=== PATIENT | female | born 1940 | race Caucasian/White ===

== ENCOUNTER 2020-08-28 08:23 | Inpatient (IN) | payer OTHER ==
[~2020-08-28] VITALS: Ht 160 cm; Wt 80.9 kg
[2020-08-28] MEDS ORDERED: IOPAMIDOL 370 MG/ML 200 ML INFUS..BTL INJ ONE (10:03)
[2020-08-28] MEDS ORDERED: SODIUM CHLORIDE 0.9% 50ML 50 ML ONE (10:03)
[2020-08-28] MEDS ORDERED: SODIUM CHLORIDE 0.9% 1000ML 1,000 ML IV SCH (10:45)
[2020-08-28] MEDS ORDERED: ASPIRIN 81 MG CHEW TAB PO ONE (12:00)
[2020-08-28] MEDS ORDERED: FAMOTIDINE 20 MG/2 ML VIAL IV ONE (12:38)
[2020-08-28] MEDS ORDERED: ONDANSETRON HCL INJ 2MG/ML 2ML 2 MG/ML VIAL ONE (12:38)
[2020-08-28] MEDS: FAMOTIDINE 20 MG/2 ML VIAL IV SCH ×2 (12:42→17:58)
[2020-08-28] MEDS: ONDANSETRON HCL INJ 2MG/ML 2ML 2 MG/ML VIAL IV PRN ×2 (12:42→20:07)
[2020-08-28] MEDS: D5.45%NS/KCL 20MEQ 1,000 ML IV SCH (13:30)
[2020-08-28 14:32] VITALS: BP 101/53
[2020-08-28 16:59] VITALS: BP 103/59
[2020-08-28] MEDS ORDERED: ASPIRIN81 MG PO (17:25)
[2020-08-28] MEDS ORDERED: BENICAR20 MG PO (17:25)
[2020-08-28] MEDS ORDERED: LASIX20 MG PO (17:25)
[2020-08-28] MEDS ORDERED: ATORVASTATIN CA10 MG PO (17:25)
[2020-08-28] MEDS ORDERED: BENADRYL ALLERG25 MG PO (17:25)
[2020-08-28] MEDS ORDERED: CYMBALTA20 MG PO (17:25)
[2020-08-28] MEDS ORDERED: DICLOFENAC35 MG PO (17:25)
[2020-08-28] MEDS ORDERED: ADVAIR 250-501 EACH INH (17:25)
[2020-08-28] MEDS ORDERED: CARVEDILOL3.125 MG PO (17:25)
[2020-08-28] MEDS ORDERED: FLONASE ALLERG9.9 ML INH (17:25)
[2020-08-28] MEDS ORDERED: METFORMIN HCL500 MG PO (17:25)
[2020-08-28] MEDS ORDERED: PROTONIX20 MG PO (17:25)
[2020-08-28] MEDS ORDERED: ZYRTEC10 M3 PO (17:25)
[2020-08-28 20:00] VITALS: BP 109/56
[2020-08-28 20:08] VITALS: BP 109/55
[2020-08-29] VITALS (10 sets, daily range): BP systolic 103–127; BP diastolic 51–69
[2020-08-29] MEDS: D5.45%NS/KCL 20MEQ 1,000 ML IV SCH ×3 (04:53→17:34)
[2020-08-29 08:22] LABS: BASOPHILS # (AUTO) 0.1 (0.0-0.1); BASOPHILS % 1.5 % (0.0-1.0); EOSINOPHILS % 0.4 % (0.0-6.0); HEMATOCRIT 37.2 % (34.2-44.1); HEMOGLOBIN 11.5 g/dL (12.0-16.0); LYMPHOCYTES # (AUTO) 0.8 (1.0-3.2); LYMPHOCYTES % 17.9 % (18.0-39.1); MEAN CORPUSCULAR HEMOGLOBIN 26.8 pg (28-32); MEAN CORPUSCULAR HGB CONC 30.9 g/dL (31-35); MEAN CORPUSCULAR VOLUME 86.7 fL (81-99); MONOCYTES # (AUTO) 1.1 (0.2-0.8); MONOCYTES % 23.9 % (4.4-11.3); NEUTROPHILS # (AUTO) 2.5 (2.1-6.9); NEUTROPHILS % 55.9 % (38.7-80.0); PLATELET COUNT 219 x10e3/uL (140-360); RED BLOOD COUNT 4.29 x10e6/uL (3.6-5.1); RED CELL DISTRIBUTION WIDTH 15.8 % (11.7-14.4)
[2020-08-29] MEDS: FAMOTIDINE 20 MG/2 ML VIAL IV SCH (08:27)
[2020-08-29 08:40] LABS: ANION GAP 13.9 mmol/L (8-16); BLOOD UREA NITROGEN 19 mg/dL (7-26); BUN/CREATININE RATIO 27 (6-25); CALCIUM 8.1 mg/dL (8.4-10.2); CARBON DIOXIDE 23 mmol/L (22-29); CHLORIDE 104 mmol/L (98-107); EST GLOMERULAR FILTRATION RATE > 60 ML/MIN (60-); GLUCOSE 142 mg/dL (74-118); POTASSIUM 3.9 mmol/L (3.5-5.1); SODIUM 137 mmol/L (136-145)
[2020-08-29 09:36] LABS: CREATINE KINASE MB 1.4 ng/mL (0-5.0)
[2020-08-29] MEDS ORDERED: ZOLPIDEM TARTRATE 5 MG TAB PO PRN (11:15)
[2020-08-29] MEDS ORDERED: DOCUSATE SODIUM 100 MG CAP PO PRN (11:15)
[2020-08-29] MEDS ORDERED: ONDANSETRON HCL INJ 2MG/ML 2ML 2 MG/ML VIAL IV PRN (11:15)
[2020-08-29 12:35] LABS: BAND NEUTROPHILS % (MANUAL) 10 %; EOSINOPHILS % (MANUAL) 1 % (0-7); LYMPHOCYTES % (MANUAL) 25 % (19-48); MONOCYTES % (MANUAL) 13 % (3.4-9.0); MYELOCYTES % (MANUAL) 1 % (0-0); NEUTROPHILS % (MANUAL) 44 % (40-74); PROMYELOCYTES % (MANUAL) 6 % (0-0)
[2020-08-29 12:38] LABS: PLATELET ESTIMATE ADEQUATE; PLATELET MORPHOLOGY COMMENT NORMAL; RBC MORPHOLOGY COMMENT NORMAL
[2020-08-29 13:52] LABS: INR 1.12; PROTHROMBIN TIME 15.1 seconds (11.9-14.5)
[2020-08-29 13:53] LABS: PARTIAL THROMBOPLASTIN TIME 34.6 seconds (23.8-35.5)
[2020-08-29 16:44] LABS: CHOL/HDL RATIO 2.9 (3.0-3.6)
[2020-08-29] MEDS: CARVEDILOL 3.125 MG TAB PO SCH (17:36)
[2020-08-29] MEDS: ATORVASTATIN 40 MG TAB PO SCH (22:44)
[2020-08-30] VITALS (13 sets, daily range): BP systolic 78–124; BP diastolic 52–72
[2020-08-30] MEDS: D5.45%NS/KCL 20MEQ 1,000 ML IV SCH ×2 (03:39→13:30)
[2020-08-30] MEDS ORDERED: SALMETEROL/FLUTICASONE 250/50 INH SCH (06:00)
[2020-08-30] MEDS: CARVEDILOL 3.125 MG TAB PO SCH ×2 (08:00→14:30)
[2020-08-30] MEDS: FAMOTIDINE 20 MG/2 ML VIAL IV SCH ×2 (08:50→16:06)
[2020-08-30] MEDS ORDERED: PANTOPRAZOLE SOD 40 MG TABEC PO SCH (09:00)
[2020-08-30] MEDS ORDERED: OLMESARTAN 20 MG TAB PO SCH (09:00)
[2020-08-30] MEDS ORDERED: MIDAZOLAM HCL 2 MG/2 ML VIAL ONE (13:01)
[2020-08-30] MEDS ORDERED: FENTANYL CITRATE/PF 100MCG/2 ML INJ ONE (13:01)
[2020-08-30] MEDS ORDERED: ETOMIDATE 2 MG/ML 10 ML INJ IV ONE (13:39)
[2020-08-30] MEDS ORDERED: SUCCINYLCHOLINE CHLORIDE 20 MG/ML 10ML VIAL ONE (13:39)
[2020-08-30] MEDS ORDERED: MIDAZOLAM HCL 2 MG/2 ML VIAL IV STA (14:13)
[2020-08-30] MEDS ORDERED: FENTANYL CITRATE/PF 100MCG/2 ML INJ IV ONE (14:15)
[2020-08-30] MEDS ORDERED: MIDAZOLAM HCL 5MG/ML 10ML VIAL 100 ML IV ONE (14:26)
[2020-08-30] MEDS: FENTANYL 2000MCG/NS 250 250 ML IV SCH ×2 (14:50→19:15)
[2020-08-30] MEDS: MIDAZOLAM HCL 5MG/ML 10ML VIAL 100 ML IV PRN (14:51)
[2020-08-30 15:34] LABS: ABG PCO2 45 mmHg (35-45); ABG PH 7.32 (7.35-7.45); ABG PO2 137 mmHg (80-105)
[2020-08-30 15:35] LABS: ABG HCO3 23 mmol/L (22-26); ABG TCO2 25
[2020-08-30] MEDS ORDERED: SODIUM CHLORIDE 0.9% 1000ML 1,000 ML IV ONE ×2 (15:45→16:15)
[2020-08-30] MEDS: NOREPINEPHRINE 8 MG/D5W 250 ML 250 ML IV PRN (16:06)
[2020-08-30] MEDS ORDERED: SODIUM CHLORIDE 0.9% 250ML 250 ML IV ONE (16:15)
[2020-08-30 16:23] LABS: BASOPHILS % 0.5 % (0.0-1.0); EOSINOPHILS # (AUTO) 0.1 (0.0-0.4); EOSINOPHILS % 0.7 % (0.0-6.0); HEMATOCRIT 32.4 % (34.2-44.1); LYMPHOCYTES # (AUTO) 1.4 (1.0-3.2); LYMPHOCYTES % 16.7 % (18.0-39.1); MEAN CORPUSCULAR HEMOGLOBIN 26.8 pg (28-32); MEAN CORPUSCULAR HGB CONC 30.9 g/dL (31-35); MEAN CORPUSCULAR VOLUME 86.9 fL (81-99); MONOCYTES # (AUTO) 1.3 (0.2-0.8); MONOCYTES % 15.2 % (4.4-11.3); NEUTROPHILS # (AUTO) 5.6 (2.1-6.9); PLATELET COUNT 290 x10e3/uL (140-360); RED BLOOD COUNT 3.73 x10e6/uL (3.6-5.1); RED CELL DISTRIBUTION WIDTH 15.6 % (11.7-14.4)
[2020-08-30] MEDS: PIPERACILLIN/TAZOBAC 3.375 GM in SODIUM CHLORIDE 0.9% 50ML 50 ML IV SCH (20:14)
[2020-08-30] MEDS: ATORVASTATIN 40 MG TAB PO SCH (21:47)
[2020-08-31] VITALS (20 sets, daily range): BP systolic 72–134; BP diastolic 47–68
[2020-08-31] MEDS: PIPERACILLIN/TAZOBAC 3.375 GM in SODIUM CHLORIDE 0.9% 50ML 50 ML IV SCH ×4 (00:20→18:51)
[2020-08-31 00:35] LABS: BASOPHILS % 0.5 % (0.0-1.0); EOSINOPHILS # (AUTO) 0.1 (0.0-0.4); HEMATOCRIT 30.4 % (34.2-44.1); HEMOGLOBIN 9.2 g/dL (12.0-16.0); LYMPHOCYTES # (AUTO) 1.3 (1.0-3.2); LYMPHOCYTES % 16.2 % (18.0-39.1); MEAN CORPUSCULAR HEMOGLOBIN 26.2 pg (28-32); MEAN CORPUSCULAR HGB CONC 30.3 g/dL (31-35); MEAN CORPUSCULAR VOLUME 86.6 fL (81-99); MONOCYTES # (AUTO) 1.1 (0.2-0.8); MONOCYTES % 13.4 % (4.4-11.3); NEUTROPHILS # (AUTO) 5.5 (2.1-6.9); NEUTROPHILS % 67.8 % (38.7-80.0); PLATELET COUNT 280 x10e3/uL (140-360); RED BLOOD COUNT 3.51 x10e6/uL (3.6-5.1); RED CELL DISTRIBUTION WIDTH 15.9 % (11.7-14.4)
[2020-08-31] MEDS: MIDAZOLAM HCL 5MG/ML 10ML VIAL 100 ML IV PRN ×3 (01:05→20:54)
[2020-08-31] MEDS ORDERED: PANTOPRAZOL 40MG/SOD CHL 0.9% 50 ML IV ONE (03:54)
[2020-08-31] MEDS: SODIUM CHLORIDE 0.9% 1000ML 1,000 ML IV SCH ×3 (06:48→22:13)
[2020-08-31] MEDS: PANTOPRAZOL 40MG/SOD CHL 0.9% 50 ML IV SCH ×4 (06:49→21:00)
[2020-08-31 07:31] LABS: ALANINE AMINOTRANSFERASE 8 IU/L (0-55); ALBUMIN 1.7 g/dL (3.5-5.0); ALBUMIN/GLOBULIN RATIO 0.9 (0.8-2.0); ALKALINE PHOSPHATASE 50 IU/L (40-150); ANION GAP 11.3 mmol/L (8-16); BLOOD UREA NITROGEN 15 mg/dL (7-26); BUN/CREATININE RATIO 23 (6-25); CARBON DIOXIDE 15 mmol/L (22-29); CHLORIDE 115 mmol/L (98-107); CREATININE, SERUM 0.64 mg/dL (0.57-1.11); EST GLOMERULAR FILTRATION RATE > 60 ML/MIN (60-); GLUCOSE 172 mg/dL (74-118); POTASSIUM 3.3 mmol/L (3.5-5.1); SODIUM 138 mmol/L (136-145)
[2020-08-31 07:54] LABS: BASOPHILS % 0.5 % (0.0-1.0); EOSINOPHILS # (AUTO) 0.1 (0.0-0.4); EOSINOPHILS % 0.9 % (0.0-6.0); HEMOGLOBIN 7.4 g/dL (12.0-16.0); LYMPHOCYTES # (AUTO) 1.2 (1.0-3.2); LYMPHOCYTES % 15.5 % (18.0-39.1); MEAN CORPUSCULAR HEMOGLOBIN 26.2 pg (28-32); MEAN CORPUSCULAR HGB CONC 29.6 g/dL (31-35); MEAN CORPUSCULAR VOLUME 88.7 fL (81-99); MONOCYTES % 12.2 % (4.4-11.3); NEUTROPHILS # (AUTO) 5.4 (2.1-6.9); NEUTROPHILS % 69.7 % (38.7-80.0); PLATELET COUNT 228 x10e3/uL (140-360); RED BLOOD COUNT 2.82 x10e6/uL (3.6-5.1)
[2020-08-31 07:57] LABS: CALCIUM 5.9 mg/dL (8.4-10.2)
[2020-08-31 08:02] LABS: ABG HCO3 21 mmol/L (22-26); ABG PCO2 49 mmHg (35-45); ABG PO2 211 mmHg (80-105); ABG TCO2 23
[2020-08-31 08:03] LABS: ABG PH 7.24 (7.35-7.45)
[2020-08-31 08:03] LABS: FERRITIN 91.63 ng/mL (4.63-204.00)
[2020-08-31 08:53] LABS: INR 1.31; PROTHROMBIN TIME 17.2 seconds (11.9-14.5)
[2020-08-31] MEDS: FAMOTIDINE 20 MG/2 ML VIAL IV SCH ×2 (08:56→18:51)
[2020-08-31] MEDS: NOREPINEPHRINE 8 MG/D5W 250 ML 250 ML IV PRN (08:58)
[2020-08-31] MEDS: FENTANYL 2000MCG/NS 250 250 ML IV SCH (09:01)
[2020-08-31] MEDS ORDERED: CALCIUM GLUCONATE 10% INJ 9.3 MEQ in SODIUM CHLORIDE 0.9% 100 ML 100 ML IV ONE (09:45)
[2020-08-31] MEDS ORDERED: CALCIUM GLUCONATE 10% INJ 0.465 MEQ/ML VIAL ONE (10:36)
[2020-08-31] MEDS ORDERED: HEPARIN SOD (PORCINE) 1000 UNIT/ML SDV ONE (11:23)
[2020-08-31] MEDS: ALBUTEROL/IPRATROPIUM 3 ML NEB NEB SCH ×2 (14:51→19:50)
[2020-08-31] MEDS ORDERED: PHYTONADIONE 10 MG/ML AMP SQ ONE (18:00)
[2020-08-31] MEDS ORDERED: SODIUM CHLORIDE 0.9% 250ML 250 ML ONE ×2 (18:21→21:55)
[2020-08-31] MEDS: ATORVASTATIN 40 MG TAB PO SCH (21:00)
[2020-09-01] VITALS (24 sets, daily range): BP systolic 113–144; BP diastolic 54–74
[2020-09-01] MEDS: PIPERACILLIN/TAZOBAC 3.375 GM in SODIUM CHLORIDE 0.9% 50ML 50 ML IV SCH ×4 (00:15→18:00)
[2020-09-01 00:27] LABS: ABG HCO3 19 mmol/L (22-26); ABG PCO2 39 mmHg (35-45); ABG PH 7.29 (7.35-7.45); ABG PO2 127 mmHg (80-105); ABG TCO2 20
[2020-09-01] MEDS: ALBUTEROL/IPRATROPIUM 3 ML NEB NEB SCH ×4 (01:50→16:43)
[2020-09-01] MEDS ORDERED: PHYTONADIONE 10MG/ML 2 ML ONE (01:54)
[2020-09-01] MEDS ORDERED: SODIUM CHLORIDE 0.9% 100 ML ONE (01:56)
[2020-09-01] MEDS ORDERED: PHYTONADIONE 10 MG/ML AMP SQ ONE (02:00)
[2020-09-01] MEDS: PANTOPRAZOL 40MG/SOD CHL 0.9% 50 ML IV SCH ×5 (02:35→23:04)
[2020-09-01] MEDS: SODIUM CHLORIDE 0.9% 1000ML 1,000 ML IV SCH (06:15)
[2020-09-01] MEDS: NOREPINEPHRINE 8 MG/D5W 250 ML 250 ML IV PRN (06:15)
[2020-09-01 06:34] LABS: BASOPHILS # (AUTO) 0.1 (0.0-0.1); BASOPHILS % 0.5 % (0.0-1.0); EOSINOPHILS # (AUTO) 0.1 (0.0-0.4); EOSINOPHILS % 1.1 % (0.0-6.0); HEMATOCRIT 33.6 % (34.2-44.1); HEMOGLOBIN 10.4 g/dL (12.0-16.0); LYMPHOCYTES % 9.9 % (18.0-39.1); MEAN CORPUSCULAR HEMOGLOBIN 27.2 pg (28-32); MONOCYTES # (AUTO) 1.1 (0.2-0.8); MONOCYTES % 10.9 % (4.4-11.3); NEUTROPHILS # (AUTO) 7.8 (2.1-6.9); NEUTROPHILS % 76.4 % (38.7-80.0); PLATELET COUNT 191 x10e3/uL (140-360); RED BLOOD COUNT 3.82 x10e6/uL (3.6-5.1); RED CELL DISTRIBUTION WIDTH 15.6 % (11.7-14.4)
[2020-09-01 06:45] LABS: INR 1.28; PROTHROMBIN TIME 16.9 seconds (11.9-14.5)
[2020-09-01 06:46] LABS: PARTIAL THROMBOPLASTIN TIME 31.5 seconds (23.8-35.5)
[2020-09-01] MEDS: FENTANYL 2000MCG/NS 250 250 ML IV SCH (06:54)
[2020-09-01] MEDS: MIDAZOLAM HCL 5MG/ML 10ML VIAL 100 ML IV PRN (06:55)
[2020-09-01 07:08] LABS: ALANINE AMINOTRANSFERASE 8 IU/L (0-55); ALBUMIN 1.8 g/dL (3.5-5.0); ALBUMIN/GLOBULIN RATIO 0.7 (0.8-2.0); ALKALINE PHOSPHATASE 57 IU/L (40-150); ANION GAP 13.7 mmol/L (8-16); BLOOD UREA NITROGEN 15 mg/dL (7-26); BUN/CREATININE RATIO 24 (6-25); CALCIUM 7.2 mg/dL (8.4-10.2); CARBON DIOXIDE 17 mmol/L (22-29); CHLORIDE 115 mmol/L (98-107); CREATININE, SERUM 0.63 mg/dL (0.57-1.11); EST GLOMERULAR FILTRATION RATE > 60 ML/MIN (60-); GLUCOSE 107 mg/dL (74-118); POTASSIUM 3.7 mmol/L (3.5-5.1); SODIUM 142 mmol/L (136-145)
[2020-09-01] MEDS: IRON SUCROSE 100 MG in SODIUM CHLORIDE 0.9% 100 ML 100 ML IV SCH (09:00)
[2020-09-01] MEDS ORDERED: METHYLPREDNISOLONE SOD SUCC 125 MG/2ML VIAL IV SCH ×2 (09:00→21:00)
[2020-09-01] MEDS ORDERED: METHYLPREDNISOLONE SOD SUCC 125 MG/2ML VIAL ONE (09:52)
[2020-09-01] MEDS ORDERED: PROPOFOL IV EMULSION 10MG/ML 100 ML IV PRN (11:30)
[2020-09-01] MEDS ORDERED: FUROSEMIDE INJ 10 MG/ML 10 ML VIAL ONE (11:34)
[2020-09-01] MEDS ORDERED: ALBUMIN 25% 25GM 100ML 100 ML ONE (11:38)
[2020-09-01] MEDS: FUROSEMIDE INJ 10 MG/ML 4 ML VIAL IV SCH ×2 (11:45→20:55)
[2020-09-01] MEDS ORDERED: ALBUMIN 25% 25GM 100ML 0.25 GM/ML BTL IV SCH (12:00)
[2020-09-01] MEDS: ALBUMIN 25% 25GM 100ML 100 ML IV SCH ×2 (12:30→22:13)
[2020-09-01] MEDS ORDERED: ACETAMINOPHEN 325 MG TAB PO ONE (17:45)
[2020-09-01] MEDS: ATORVASTATIN 40 MG TAB PO SCH (20:55)
[2020-09-01] MEDS: METHYLPREDNISOLONE SOD SUCC 40 MG/ML VIAL 1ML IV SCH (20:55)
[2020-09-02] VITALS (26 sets, daily range): BP systolic 127–177; BP diastolic 58–86
[2020-09-02] MEDS: PIPERACILLIN/TAZOBAC 3.375 GM in SODIUM CHLORIDE 0.9% 50ML 50 ML IV SCH ×4 (00:01→17:31)
[2020-09-02] MEDS: ALBUTEROL/IPRATROPIUM 3 ML NEB NEB SCH ×4 (02:45→20:10)
[2020-09-02] MEDS: PANTOPRAZOL 40MG/SOD CHL 0.9% 50 ML IV SCH ×5 (03:35→23:49)
[2020-09-02 04:52] LABS: BASOPHILS % 0.3 % (0.0-1.0); HEMATOCRIT 29.3 % (34.2-44.1); HEMOGLOBIN 9.2 g/dL (12.0-16.0); LYMPHOCYTES # (AUTO) 0.4 (1.0-3.2); LYMPHOCYTES % 4.7 % (18.0-39.1); MEAN CORPUSCULAR HEMOGLOBIN 27.2 pg (28-32); MEAN CORPUSCULAR HGB CONC 31.4 g/dL (31-35); MEAN CORPUSCULAR VOLUME 86.7 fL (81-99); MONOCYTES # (AUTO) 0.2 (0.2-0.8); MONOCYTES % 2.5 % (4.4-11.3); NEUTROPHILS # (AUTO) 6.8 (2.1-6.9); NEUTROPHILS % 90.9 % (38.7-80.0); PLATELET COUNT 162 x10e3/uL (140-360); RED BLOOD COUNT 3.38 x10e6/uL (3.6-5.1)
[2020-09-02 05:15] LABS: AMYLASE 17 U/L (25-125); LIPASE 4 U/L (8-78)
[2020-09-02 05:19] LABS: ALANINE AMINOTRANSFERASE 7 IU/L (0-55); ALBUMIN 2.6 g/dL (3.5-5.0); ALKALINE PHOSPHATASE 50 IU/L (40-150); ANION GAP 14.8 mmol/L (8-16); BLOOD UREA NITROGEN 14 mg/dL (7-26); BUN/CREATININE RATIO 20 (6-25); CALCIUM 7.8 mg/dL (8.4-10.2); CARBON DIOXIDE 23 mmol/L (22-29); CHLORIDE 110 mmol/L (98-107); CREATININE, SERUM 0.71 mg/dL (0.57-1.11); EST GLOMERULAR FILTRATION RATE > 60 ML/MIN (60-); GLUCOSE 151 mg/dL (74-118); SODIUM 145 mmol/L (136-145)
[2020-09-02 05:53] LABS: POTASSIUM 2.8 mmol/L (3.5-5.1)
[2020-09-02] MEDS ORDERED: POTASSIUM CHLORIDE 20MEQ/100ML 200 ML IV ONE ×2 (06:00→18:00)
[2020-09-02] MEDS: ALBUMIN 25% 25GM 100ML 100 ML IV SCH (06:05)
[2020-09-02] MEDS ORDERED: POTASSIUM CHLORIDE 20MEQ/100ML 200 ML ONE (06:05)
[2020-09-02] MEDS: METHYLPREDNISOLONE SOD SUCC 40 MG/ML VIAL 1ML IV SCH ×2 (08:46→19:55)
[2020-09-02] MEDS: IRON SUCROSE 100 MG in SODIUM CHLORIDE 0.9% 100 ML 100 ML IV SCH (08:46)
[2020-09-02 10:55] LABS: ABG HCO3 26 mmol/L (22-26); ABG PCO2 46 mmHg (35-45); ABG PH 7.35 (7.35-7.45); ABG PO2 62 mmHg (80-105); ABG TCO2 27
[2020-09-02] MEDS ORDERED: POTASSIUM CHLORIDE 20MEQ/15ML UDC NG ONE (15:15)
[2020-09-02] MEDS ORDERED: KCL 20 MEQ PACKET/ ORAL SOLN NG ONE (15:45)
[2020-09-02] MEDS ORDERED: HALOPERIDOL LACTATE 5 MG/ML VIAL IV ONE (16:30)
[2020-09-02] MEDS ORDERED: HALOPERIDOL LACTATE 5 MG/ML VIAL ONE (16:30)
[2020-09-02] MEDS: NICOTINE 21 MG/EA PATCH TOP PRN (19:14)
[2020-09-02] MEDS: ATORVASTATIN 40 MG TAB PO SCH (19:38)
[2020-09-02] MEDS ORDERED: QUETIAPINE FUMARATE 25 MG TAB ONE (21:45)
[2020-09-02] MEDS ORDERED: QUETIAPINE FUMARATE 25 MG TAB PO SCH (22:00)
[2020-09-02] MEDS ORDERED: PANTOPRAZOLE 40 MG 10ML VIAL ONE (23:53)
[2020-09-02] MEDS ORDERED: SODIUM CHLORIDE 0.9% 100 ML ONE (23:53)
[2020-09-03] VITALS (24 sets, daily range): BP systolic 103–205; BP diastolic 60–116
[2020-09-03] MEDS: PIPERACILLIN/TAZOBAC 3.375 GM in SODIUM CHLORIDE 0.9% 50ML 50 ML IV SCH ×4 (00:37→17:37)
[2020-09-03] MEDS: ALBUTEROL/IPRATROPIUM 3 ML NEB NEB SCH ×4 (01:00→20:35)
[2020-09-03 04:52] LABS: BASOPHILS % 0.1 % (0.0-1.0); HEMATOCRIT 31.4 % (34.2-44.1); HEMOGLOBIN 9.9 g/dL (12.0-16.0); LYMPHOCYTES # (AUTO) 0.5 (1.0-3.2); LYMPHOCYTES % 3.5 % (18.0-39.1); MEAN CORPUSCULAR HGB CONC 31.5 g/dL (31-35); MEAN CORPUSCULAR VOLUME 85.6 fL (81-99); MONOCYTES % 7.5 % (4.4-11.3); NEUTROPHILS # (AUTO) 12.2 (2.1-6.9); NEUTROPHILS % 87.6 % (38.7-80.0); PLATELET COUNT 221 x10e3/uL (140-360); RED BLOOD COUNT 3.67 x10e6/uL (3.6-5.1); RED CELL DISTRIBUTION WIDTH 15.3 % (11.7-14.4)
[2020-09-03 05:22] LABS: ALANINE AMINOTRANSFERASE 14 IU/L (0-55); ALBUMIN 3.3 g/dL (3.5-5.0); ALBUMIN/GLOBULIN RATIO 1.1 (0.8-2.0); ALKALINE PHOSPHATASE 64 IU/L (40-150); ANION GAP 17.9 mmol/L (8-16); BLOOD UREA NITROGEN 22 mg/dL (7-26); BUN/CREATININE RATIO 29 (6-25); CALCIUM 9.1 mg/dL (8.4-10.2); CARBON DIOXIDE 23 mmol/L (22-29); CHLORIDE 113 mmol/L (98-107); CREATININE, SERUM 0.77 mg/dL (0.57-1.11); EST GLOMERULAR FILTRATION RATE > 60 ML/MIN (60-); GLUCOSE 136 mg/dL (74-118); POTASSIUM 3.9 mmol/L (3.5-5.1); SODIUM 150 mmol/L (136-145)
[2020-09-03] MEDS: PANTOPRAZOL 40MG/SOD CHL 0.9% 50 ML IV SCH ×4 (05:37→19:45)
[2020-09-03] MEDS ORDERED: QUETIAPINE FUMARATE 25 MG TAB PO PRN (06:15)
[2020-09-03] MEDS: DEXTROSE 5% 1,000 ML IV SCH (06:19)
[2020-09-03] MEDS: CHLORDIAZEPOXIDE HCL 25 MG CAP NG SCH ×2 (06:19→11:00)
[2020-09-03] MEDS ORDERED: CHLORDIAZEPOXIDE HCL 25 MG CAP ONE (06:28)
[2020-09-03] MEDS ORDERED: LORAZEPAM INJ 2 MG/ML VIAL ONE (07:16)
[2020-09-03] MEDS ORDERED: LORAZEPAM INJ 2 MG/ML VIAL IV ONE (08:25)
[2020-09-03] MEDS ORDERED: QUETIAPINE FUMARATE 25 MG TAB PO SCH (09:00)
[2020-09-03] MEDS: IRON SUCROSE 100 MG in SODIUM CHLORIDE 0.9% 100 ML 100 ML IV SCH (09:00)
[2020-09-03] MEDS: METHYLPREDNISOLONE SOD SUCC 40 MG/ML VIAL 1ML IV SCH (09:00)
[2020-09-03] MEDS: NICOTINE 21 MG/EA PATCH TOP PRN (09:00)
[2020-09-03] MEDS ORDERED: ZIPRASIDONE 20 MG VIAL IM ONE (09:49)
[2020-09-03] MEDS ORDERED: ZIPRASIDONE 20 MG VIAL IM STA (10:51)
[2020-09-03] MEDS ORDERED: ZIPRASIDONE 20 MG VIAL IM PRN (11:00)
[2020-09-03] MEDS ORDERED: ACETAMINOPHEN 650 MG SUPP PR ONE ×2 (12:26→12:45)
[2020-09-03] MEDS ORDERED: ACETAMINOPHEN 650 MG SUPP PR PRN (12:45)
[2020-09-03] MEDS: QUETIAPINE FUMARATE 25 MG TAB PO SCH ×2 (16:00→21:10)
[2020-09-03] MEDS: LORAZEPAM INJ 2 MG/ML VIAL IV PRN ×2 (22:01→22:11)
[2020-09-04] VITALS (26 sets, daily range): BP systolic 96–173; BP diastolic 60–113
[2020-09-04] MEDS: PIPERACILLIN/TAZOBAC 3.375 GM in SODIUM CHLORIDE 0.9% 50ML 50 ML IV SCH ×3 (00:16→12:40)
[2020-09-04] MEDS: ALBUTEROL/IPRATROPIUM 3 ML NEB NEB SCH ×4 (00:25→21:45)
[2020-09-04] MEDS: PANTOPRAZOL 40MG/SOD CHL 0.9% 50 ML IV SCH ×4 (01:19→16:15)
[2020-09-04] MEDS: QUETIAPINE FUMARATE 25 MG TAB PO SCH ×4 (04:00→22:00)
[2020-09-04] MEDS: LORAZEPAM INJ 2 MG/ML VIAL IV PRN ×2 (04:48→11:52)
[2020-09-04 04:50] LABS: BASOPHILS % 0.2 % (0.0-1.0); HEMATOCRIT 32.2 % (34.2-44.1); HEMOGLOBIN 9.9 g/dL (12.0-16.0); LYMPHOCYTES # (AUTO) 0.7 (1.0-3.2); LYMPHOCYTES % 6.7 % (18.0-39.1); MEAN CORPUSCULAR HEMOGLOBIN 26.7 pg (28-32); MEAN CORPUSCULAR HGB CONC 30.7 g/dL (31-35); MEAN CORPUSCULAR VOLUME 86.8 fL (81-99); MONOCYTES # (AUTO) 0.7 (0.2-0.8); NEUTROPHILS # (AUTO) 9.4 (2.1-6.9); NEUTROPHILS % 85.8 % (38.7-80.0); PLATELET COUNT 172 x10e3/uL (140-360); RED BLOOD COUNT 3.71 x10e6/uL (3.6-5.1); RED CELL DISTRIBUTION WIDTH 15.4 % (11.7-14.4)
[2020-09-04] MEDS ORDERED: THIAMINE HCL INJ 100 MG/ML 2ML VIAL ONE (05:13)
[2020-09-04 05:14] LABS: ALANINE AMINOTRANSFERASE 23 IU/L (0-55); ALBUMIN 3.2 g/dL (3.5-5.0); ALBUMIN/GLOBULIN RATIO 1.1 (0.8-2.0); ALKALINE PHOSPHATASE 62 IU/L (40-150); ANION GAP 16.2 mmol/L (8-16); BLOOD UREA NITROGEN 17 mg/dL (7-26); BUN/CREATININE RATIO 26 (6-25); CALCIUM 8.8 mg/dL (8.4-10.2); CARBON DIOXIDE 27 mmol/L (22-29); CHLORIDE 109 mmol/L (98-107); CREATININE, SERUM 0.65 mg/dL (0.57-1.11); EST GLOMERULAR FILTRATION RATE > 60 ML/MIN (60-); GLUCOSE 126 mg/dL (74-118); POTASSIUM 3.2 mmol/L (3.5-5.1); SODIUM 149 mmol/L (136-145)
[2020-09-04] MEDS ORDERED: THIAMINE HCL INJ 100 MG/ML 2ML VIAL IV ONE (06:00)
[2020-09-04] MEDS: DEXTROSE 5% 1,000 ML IV SCH (06:15)
[2020-09-04] MEDS ORDERED: POTASSIUM CHLORIDE 20 MEQ TAB CR PO STA (07:51)
[2020-09-04] MEDS ORDERED: METOPROLOL TARTRATE INJ 1 MG/ML VIAL IV PRN (08:15)
[2020-09-04] MEDS ORDERED: METOPROLOL TARTRATE INJ 1 MG/ML VIAL IV ONE (08:15)
[2020-09-04] MEDS ORDERED: EPINEPHRINE 2.25% INH NEBU SOL 0.5 ML VIAL ONE (08:19)
[2020-09-04] MEDS ORDERED: METHYLPREDNISOLONE SOD SUCC 40 MG/ML VIAL 1ML IV SCH (08:30)
[2020-09-04] MEDS ORDERED: THIAMINE HCL INJ 100 MG/ML 2ML VIAL IV SCH (09:00)
[2020-09-04] MEDS ORDERED: FUROSEMIDE INJ 10 MG/ML 4 ML VIAL IV STA (09:15)
[2020-09-04] MEDS: IRON SUCROSE 100 MG in SODIUM CHLORIDE 0.9% 100 ML 100 ML IV SCH (09:41)
[2020-09-04] MEDS: NICOTINE 21 MG/EA PATCH TOP PRN (14:00)
[2020-09-04] MEDS ORDERED: ZIPRASIDONE 20 MG VIAL IM STA (18:03)
[2020-09-04] MEDS ORDERED: ASPIRIN 81 MG CHEW TAB PO ONE ×3 (20:30→20:45)
[2020-09-04] MEDS ORDERED: POTASSIUM CHLORIDE 20MEQ/100ML 100 ML IV ONE ×2 (20:45→23:00)
[2020-09-04] MEDS: METHYLPREDNISOLONE SOD SUCC 40 MG/ML VIAL 1ML IV SCH (21:40)
[2020-09-04] MEDS: FUROSEMIDE INJ 10 MG/ML 4 ML VIAL IV SCH (21:40)
[2020-09-04 21:58] LABS: CREATINE KINASE MB 3.1 ng/mL (0-5.0)
[2020-09-05] VITALS (26 sets, daily range): BP systolic 99–166; BP diastolic 63–131
[2020-09-05] MEDS: ALBUTEROL/IPRATROPIUM 3 ML NEB NEB SCH ×4 (02:30→19:15)
[2020-09-05] MEDS: QUETIAPINE FUMARATE 25 MG TAB PO SCH ×4 (04:00→22:00)
[2020-09-05 04:03] LABS: CREATINE KINASE MB 2.6 ng/mL (0-5.0)
[2020-09-05] MEDS: FUROSEMIDE INJ 10 MG/ML 4 ML VIAL IV SCH (06:34)
[2020-09-05 07:13] LABS: ANION GAP 19.4 mmol/L (8-16); BLOOD UREA NITROGEN 15 mg/dL (7-26); BUN/CREATININE RATIO 22 (6-25); CALCIUM 8.8 mg/dL (8.4-10.2); CARBON DIOXIDE 31 mmol/L (22-29); CHLORIDE 101 mmol/L (98-107); CREATININE, SERUM 0.67 mg/dL (0.57-1.11); EST GLOMERULAR FILTRATION RATE > 60 ML/MIN (60-); GLUCOSE 146 mg/dL (74-118); POTASSIUM 3.4 mmol/L (3.5-5.1); SODIUM 148 mmol/L (136-145)
[2020-09-05] MEDS: IRON SUCROSE 100 MG in SODIUM CHLORIDE 0.9% 100 ML 100 ML IV SCH ×3 (09:00→17:45)
[2020-09-05] MEDS: HYDROCHLOROTHIAZIDE 25 MG TAB PO SCH (09:30)
[2020-09-05] MEDS ORDERED: POTASSIUM CHLORIDE 10MEQ/100ML 300 ML IV ONE (10:30)
[2020-09-05] MEDS ORDERED: AMIODARONE HCL 150 MG/100 ML BAG IV NR (10:30)
[2020-09-05 10:38] LABS: CREATINE KINASE MB 2.9 ng/mL (0-5.0)
[2020-09-05] MEDS: PANTOPRAZOLE 40 MG 10ML VIAL IV SCH ×2 (10:45→17:00)
[2020-09-05] MEDS ORDERED: AMIODARONE HCL 900 MG in DEXTROSE 5% 500ML 500 ML IV ONE (10:45)
[2020-09-05] MEDS: METHYLPREDNISOLONE SOD SUCC 40 MG/ML VIAL 1ML IV SCH (10:45)
[2020-09-05] MEDS ORDERED: MAGNESIUM SULFATE 2GM/50ML 50 ML IV ONE (10:45)
[2020-09-05] MEDS: THIAMINE HCL INJ 100 MG/ML 2ML VIAL IV SCH (10:53)
[2020-09-05] MEDS ORDERED: ALBUTEROL SULF 0.083% NEB SOLN 3 ML NEB ONE (12:48)
[2020-09-06] VITALS (16 sets, daily range): BP systolic 93–165; BP diastolic 55–100
[2020-09-06] MEDS: ALBUTEROL/IPRATROPIUM 3 ML NEB NEB SCH ×4 (00:30→19:00)
[2020-09-06] MEDS: LORAZEPAM INJ 2 MG/ML VIAL IV PRN ×2 (02:33→09:33)
[2020-09-06] MEDS: QUETIAPINE FUMARATE 25 MG TAB PO SCH ×4 (03:48→23:08)
[2020-09-06 04:53] LABS: BASOPHILS % 0.2 % (0.0-1.0); HEMATOCRIT 35.3 % (34.2-44.1); HEMOGLOBIN 10.8 g/dL (12.0-16.0); LYMPHOCYTES # (AUTO) 0.7 (1.0-3.2); LYMPHOCYTES % 5.9 % (18.0-39.1); MEAN CORPUSCULAR HGB CONC 30.6 g/dL (31-35); MEAN CORPUSCULAR VOLUME 88.3 fL (81-99); MONOCYTES # (AUTO) 0.5 (0.2-0.8); MONOCYTES % 4.3 % (4.4-11.3); NEUTROPHILS # (AUTO) 10.3 (2.1-6.9); NEUTROPHILS % 88.7 % (38.7-80.0); PLATELET COUNT 217 x10e3/uL (140-360); RED CELL DISTRIBUTION WIDTH 15.5 % (11.7-14.4)
[2020-09-06 05:10] LABS: ALANINE AMINOTRANSFERASE 28 IU/L (0-55); ALBUMIN 3.3 g/dL (3.5-5.0); ALBUMIN/GLOBULIN RATIO 1.1 (0.8-2.0); ALKALINE PHOSPHATASE 61 IU/L (40-150); BLOOD UREA NITROGEN 20 mg/dL (7-26); BUN/CREATININE RATIO 32 (6-25); CALCIUM 8.7 mg/dL (8.4-10.2); CARBON DIOXIDE 35 mmol/L (22-29); CHLORIDE 99 mmol/L (98-107); CREATININE, SERUM 0.62 mg/dL (0.57-1.11); EST GLOMERULAR FILTRATION RATE > 60 ML/MIN (60-); GLUCOSE 128 mg/dL (74-118); SODIUM 146 mmol/L (136-145)
[2020-09-06] MEDS ORDERED: POTASSIUM CHLORIDE 20MEQ/100ML 200 ML IV ONE (08:30)
[2020-09-06] MEDS ORDERED: SODIUM CHLORIDE 0.9% 500ML 500 ML ONE (09:23)
[2020-09-06] MEDS: HYDROCHLOROTHIAZIDE 25 MG TAB PO SCH (09:32)
[2020-09-06] MEDS: FUROSEMIDE INJ 10 MG/ML 4 ML VIAL IV SCH (09:32)
[2020-09-06] MEDS: THIAMINE HCL INJ 100 MG/ML 2ML VIAL IV SCH (09:32)
[2020-09-06] MEDS: PANTOPRAZOLE 40 MG 10ML VIAL IV SCH ×2 (09:32→16:43)
[2020-09-06] MEDS: NICOTINE 21 MG/EA PATCH TOP PRN (09:33)
[2020-09-06] MEDS ORDERED: AMIODARONE HCL 900 MG in DEXTROSE 5% 500ML 500 ML IV SCH (14:00)
[2020-09-06] MEDS ORDERED: PROPOFOL IV EMULSION 10MG/ML 100 ML ONE (14:22)
[2020-09-06] MEDS ORDERED: AMIODARONE 900MG 500 ML IV SCH ×2 (14:30→20:31)
[2020-09-06] MEDS: IRON SUCROSE 100 MG in SODIUM CHLORIDE 0.9% 100 ML 100 ML IV SCH (16:43)
[2020-09-06] MEDS ORDERED: ASPIRIN 325 MG TAB PO ONE (20:00)
[2020-09-06] MEDS: ATORVASTATIN 20 MG TAB PO SCH (21:19)
[2020-09-07] VITALS (24 sets, daily range): BP systolic 71–133; BP diastolic 37–112
[2020-09-07] MEDS: ALBUTEROL/IPRATROPIUM 3 ML NEB NEB SCH ×4 (01:00→19:10)
[2020-09-07] MEDS: QUETIAPINE FUMARATE 25 MG TAB PO SCH ×2 (04:00→08:53)
[2020-09-07] MEDS ORDERED: FENTANYL CITRATE/PF 100MCG/2 ML INJ ONE (07:17)
[2020-09-07] MEDS ORDERED: HEPARIN SOD (PORCINE) 1000 UNIT/ML 30ML ONE (07:17)
[2020-09-07] MEDS ORDERED: HEPARIN SOD/SOD CHLORIDE 2,000 ML ONE (07:17)
[2020-09-07] MEDS ORDERED: LIDOCAINE HCL 2% LOCAL 20 ML VIAL ONE (07:17)
[2020-09-07] MEDS ORDERED: MIDAZOLAM HCL 2 MG/2 ML VIAL ONE (07:17)
[2020-09-07] MEDS ORDERED: SODIUM CHLORIDE 0.9% 1000ML 1,000 ML ONE ×2 (07:18→10:33)
[2020-09-07] MEDS ORDERED: IOPAMIDOL 370 MG/ML 200 ML INFUS..BTL INJ ONE (07:18)
[2020-09-07] MEDS ORDERED: NITROGLYCERIN/D5W 200 MCG/ML 0 ML ONE (07:18)
[2020-09-07] MEDS: THIAMINE HCL INJ 100 MG/ML 2ML VIAL IV SCH (08:52)
[2020-09-07] MEDS: FUROSEMIDE INJ 10 MG/ML 4 ML VIAL IV SCH (08:52)
[2020-09-07] MEDS: PANTOPRAZOLE 40 MG 10ML VIAL IV SCH ×2 (08:52→16:48)
[2020-09-07] MEDS: ASPIRIN 81 MG CHEW TAB PO SCH (08:52)
[2020-09-07] MEDS: METOPROLOL TARTRATE 25 MG TAB PO SCH ×2 (08:53→09:00)
[2020-09-07] MEDS: HYDROCHLOROTHIAZIDE 25 MG TAB PO SCH ×2 (08:53→09:00)
[2020-09-07 10:04] LABS: BASOPHILS % 0.2 % (0.0-1.0); EOSINOPHILS # (AUTO) 0.1 (0.0-0.4); EOSINOPHILS % 0.4 % (0.0-6.0); HEMATOCRIT 38.6 % (34.2-44.1); HEMOGLOBIN 11.8 g/dL (12.0-16.0); LYMPHOCYTES # (AUTO) 0.7 (1.0-3.2); LYMPHOCYTES % 4.6 % (18.0-39.1); MEAN CORPUSCULAR HEMOGLOBIN 27.1 pg (28-32); MEAN CORPUSCULAR HGB CONC 30.6 g/dL (31-35); MEAN CORPUSCULAR VOLUME 88.5 fL (81-99); MONOCYTES # (AUTO) 0.7 (0.2-0.8); MONOCYTES % 4.1 % (4.4-11.3); NEUTROPHILS # (AUTO) 14.3 (2.1-6.9); NEUTROPHILS % 89.7 % (38.7-80.0); PLATELET COUNT 233 x10e3/uL (140-360); RED BLOOD COUNT 4.36 x10e6/uL (3.6-5.1)
[2020-09-07 10:24] LABS: ALANINE AMINOTRANSFERASE 19 IU/L (0-55); ALBUMIN 2.9 g/dL (3.5-5.0); ALBUMIN/GLOBULIN RATIO 1.2 (0.8-2.0); ALKALINE PHOSPHATASE 56 IU/L (40-150); ANION GAP 13.3 mmol/L (8-16); BLOOD UREA NITROGEN 19 mg/dL (7-26); BUN/CREATININE RATIO 29 (6-25); CALCIUM 7.9 mg/dL (8.4-10.2); CARBON DIOXIDE 32 mmol/L (22-29); CHLORIDE 96 mmol/L (98-107); CREATININE, SERUM 0.65 mg/dL (0.57-1.11); EST GLOMERULAR FILTRATION RATE > 60 ML/MIN (60-); GLUCOSE 136 mg/dL (74-118); POTASSIUM 3.3 mmol/L (3.5-5.1); SODIUM 138 mmol/L (136-145)
[2020-09-07] MEDS ORDERED: VASOPRESSIN 60 UNIT in DEXTROSE 5% 50ML 57 ML IV SCH (11:00)
[2020-09-07] MEDS ORDERED: SODIUM CHLORIDE 0.9% 250ML 250 ML IV ONE (11:15)
[2020-09-07] MEDS ORDERED: POTASSIUM CHLORIDE 10MEQ EA PO ONE (12:00)
[2020-09-07] MEDS: IRON SUCROSE 100 MG in SODIUM CHLORIDE 0.9% 100 ML 100 ML IV SCH (16:48)
[2020-09-07] MEDS: ACETAMINOPHEN 325 MG TAB PO PRN (19:55)
[2020-09-07] MEDS: ATORVASTATIN 20 MG TAB PO SCH (21:08)
[2020-09-08] VITALS (13 sets, daily range): BP systolic 94–148; BP diastolic 47–78
[2020-09-08] MEDS: ALBUTEROL/IPRATROPIUM 3 ML NEB NEB SCH ×4 (01:00→21:05)
[2020-09-08] MEDS: PANTOPRAZOLE 40 MG 10ML VIAL IV SCH ×2 (08:18→17:00)
[2020-09-08] MEDS: THIAMINE HCL INJ 100 MG/ML 2ML VIAL IV SCH (08:18)
[2020-09-08] MEDS: FUROSEMIDE INJ 10 MG/ML 4 ML VIAL IV SCH (08:18)
[2020-09-08] MEDS: ASPIRIN 81 MG CHEW TAB PO SCH (08:18)
[2020-09-08] MEDS: HYDROCHLOROTHIAZIDE 25 MG TAB PO SCH (08:18)
[2020-09-08] MEDS: BALSAM PERU/CASTOR OIL 60 GM OINT...G. TP SCH (08:19)
[2020-09-08 08:20] LABS: ANION GAP 13.4 mmol/L (8-16); BLOOD UREA NITROGEN 17 mg/dL (7-26); BUN/CREATININE RATIO 26 (6-25); CALCIUM 7.9 mg/dL (8.4-10.2); CARBON DIOXIDE 33 mmol/L (22-29); CHLORIDE 93 mmol/L (98-107); CREATININE, SERUM 0.65 mg/dL (0.57-1.11); EST GLOMERULAR FILTRATION RATE > 60 ML/MIN (60-); GLUCOSE 98 mg/dL (74-118); POTASSIUM 3.4 mmol/L (3.5-5.1); SODIUM 136 mmol/L (136-145)
[2020-09-08] MEDS ORDERED: POTASSIUM CHLORIDE 20 MEQ TAB CR PO ONE (11:15)
[2020-09-08] MEDS: ACETAMINOPHEN 325 MG TAB PO PRN (12:27)
[2020-09-08] MEDS: IRON SUCROSE 100 MG in SODIUM CHLORIDE 0.9% 100 ML 100 ML IV SCH (17:19)
[2020-09-08] MEDS: ATORVASTATIN 20 MG TAB PO SCH (20:42)
[2020-09-09] VITALS (8 sets, daily range): BP systolic 95–148; BP diastolic 40–83
[2020-09-09] MEDS: ACETAMINOPHEN 325 MG TAB PO PRN (00:57)
[2020-09-09] MEDS: ALBUTEROL/IPRATROPIUM 3 ML NEB NEB SCH ×4 (03:30→20:00)
[2020-09-09 06:58] LABS: BASOPHILS % 0.2 % (0.0-1.0); EOSINOPHILS % 0.2 % (0.0-6.0); HEMATOCRIT 32.7 % (34.2-44.1); HEMOGLOBIN 10.3 g/dL (12.0-16.0); LYMPHOCYTES # (AUTO) 0.5 (1.0-3.2); LYMPHOCYTES % 2.9 % (18.0-39.1); MEAN CORPUSCULAR HGB CONC 31.5 g/dL (31-35); MEAN CORPUSCULAR VOLUME 85.8 fL (81-99); MONOCYTES # (AUTO) 0.9 (0.2-0.8); MONOCYTES % 5.2 % (4.4-11.3); NEUTROPHILS % 90.6 % (38.7-80.0); PLATELET COUNT 200 x10e3/uL (140-360); RED BLOOD COUNT 3.81 x10e6/uL (3.6-5.1); RED CELL DISTRIBUTION WIDTH 16.2 % (11.7-14.4)
[2020-09-09 07:28] LABS: ANISOCYTOSIS SLIGHT; LYMPHOCYTES % (MANUAL) 1 % (19-48); MONOCYTES % (MANUAL) 5 % (3.4-9.0); NEUTROPHILS % (MANUAL) 94 % (40-74); PLATELET ESTIMATE ADEQUATE; PLATELET MORPHOLOGY COMMENT NORMAL
[2020-09-09 07:29] LABS: RBC MORPHOLOGY COMMENT NORMAL
[2020-09-09] MEDS: PANTOPRAZOLE 40 MG 10ML VIAL IV SCH (09:00)
[2020-09-09] MEDS: FUROSEMIDE INJ 10 MG/ML 4 ML VIAL IV SCH (09:00)
[2020-09-09] MEDS: BALSAM PERU/CASTOR OIL 60 GM OINT...G. TP SCH (09:00)
[2020-09-09] MEDS: ASPIRIN 81 MG CHEW TAB PO SCH (09:00)
[2020-09-09] MEDS: HYDROCHLOROTHIAZIDE 25 MG TAB PO SCH (09:00)
[2020-09-09] MEDS: THIAMINE HCL INJ 100 MG/ML 2ML VIAL IV SCH (09:00)
[2020-09-09] MEDS ORDERED: POTASSIUM CHLORIDE 20 MEQ TAB CR PO ONE (10:30)
[2020-09-09] MEDS ORDERED: ONDANSETRON HCL 4 MG ORAL DISINTEGRATING TAB PO PRN (12:45)
[2020-09-09] MEDS: IRON SUCROSE 100 MG in SODIUM CHLORIDE 0.9% 100 ML 100 ML IV SCH (17:30)
[2020-09-09] MEDS: PANTOPRAZOLE SOD 40 MG TABEC PO SCH (21:00)
[2020-09-09] MEDS: ATORVASTATIN 20 MG TAB PO SCH (21:00)
[2020-09-10] VITALS (7 sets, daily range): BP systolic 82–107; BP diastolic 47–58
[2020-09-10] MEDS: ALBUTEROL/IPRATROPIUM 3 ML NEB NEB SCH ×4 (00:50→19:45)
[2020-09-10 05:07] LABS: BASOPHILS % 0.3 % (0.0-1.0); EOSINOPHILS # (AUTO) 0.1 (0.0-0.4); EOSINOPHILS % 0.5 % (0.0-6.0); HEMATOCRIT 30.4 % (34.2-44.1); HEMOGLOBIN 9.5 g/dL (12.0-16.0); LYMPHOCYTES # (AUTO) 0.8 (1.0-3.2); LYMPHOCYTES % 5.8 % (18.0-39.1); MEAN CORPUSCULAR HEMOGLOBIN 26.8 pg (28-32); MEAN CORPUSCULAR HGB CONC 31.3 g/dL (31-35); MEAN CORPUSCULAR VOLUME 85.9 fL (81-99); MONOCYTES # (AUTO) 1.3 (0.2-0.8); MONOCYTES % 9.9 % (4.4-11.3); NEUTROPHILS # (AUTO) 10.9 (2.1-6.9); NEUTROPHILS % 82.7 % (38.7-80.0); PLATELET COUNT 226 x10e3/uL (140-360); RED BLOOD COUNT 3.54 x10e6/uL (3.6-5.1); RED CELL DISTRIBUTION WIDTH 15.9 % (11.7-14.4)
[2020-09-10] MEDS: HYDROCHLOROTHIAZIDE 25 MG TAB PO SCH (07:19)
[2020-09-10] MEDS: FUROSEMIDE INJ 10 MG/ML 4 ML VIAL IV SCH (07:19)
[2020-09-10] MEDS: PANTOPRAZOLE SOD 40 MG TABEC PO SCH ×2 (09:00→20:57)
[2020-09-10] MEDS: THIAMINE HCL 100 MG TAB PO SCH (09:00)
[2020-09-10] MEDS: ASPIRIN 81 MG CHEW TAB PO SCH (09:00)
[2020-09-10] MEDS: BALSAM PERU/CASTOR OIL 60 GM OINT...G. TP SCH (09:06)
[2020-09-10] MEDS ORDERED: POTASSIUM CHLORIDE 20 MEQ TAB CR PO ONE (13:45)
[2020-09-10] MEDS: IRON SUCROSE 100 MG in SODIUM CHLORIDE 0.9% 100 ML 100 ML IV SCH (18:05)
[2020-09-10] MEDS: ATORVASTATIN 20 MG TAB PO SCH (20:57)
[2020-09-11] VITALS (8 sets, daily range): BP systolic 89–107; BP diastolic 46–61
[2020-09-11] MEDS: ALBUTEROL/IPRATROPIUM 3 ML NEB NEB SCH ×4 (00:45→19:50)
[2020-09-11] MEDS ORDERED: SODIUM CHLORIDE 0.9% 250ML 250 ML IV ONE (02:00)
[2020-09-11 05:13] LABS: BASOPHILS % 0.1 % (0.0-1.0); EOSINOPHILS # (AUTO) 0.1 (0.0-0.4); EOSINOPHILS % 1.1 % (0.0-6.0); HEMATOCRIT 31.5 % (34.2-44.1); HEMOGLOBIN 9.8 g/dL (12.0-16.0); LYMPHOCYTES # (AUTO) 0.8 (1.0-3.2); LYMPHOCYTES % 8.2 % (18.0-39.1); MEAN CORPUSCULAR HEMOGLOBIN 27.3 pg (28-32); MEAN CORPUSCULAR HGB CONC 31.1 g/dL (31-35); MEAN CORPUSCULAR VOLUME 87.7 fL (81-99); MONOCYTES # (AUTO) 1.1 (0.2-0.8); MONOCYTES % 11.8 % (4.4-11.3); NEUTROPHILS # (AUTO) 7.2 (2.1-6.9); NEUTROPHILS % 78.4 % (38.7-80.0); PLATELET COUNT 230 x10e3/uL (140-360); RED BLOOD COUNT 3.59 x10e6/uL (3.6-5.1); RED CELL DISTRIBUTION WIDTH 15.9 % (11.7-14.4)
[2020-09-11] MEDS: THIAMINE HCL 100 MG TAB PO SCH (08:14)
[2020-09-11] MEDS: ASPIRIN 81 MG CHEW TAB PO SCH (08:14)
[2020-09-11] MEDS: PANTOPRAZOLE SOD 40 MG TABEC PO SCH ×2 (08:14→20:50)
[2020-09-11] MEDS: BALSAM PERU/CASTOR OIL 60 GM OINT...G. TP SCH (08:15)
[2020-09-11] MEDS ORDERED: SODIUM CHLORIDE 0.9% 250ML 250 ML ONE (11:13)
[2020-09-11] MEDS: DOXYCYCLINE 100MG/NS 100ML 100 ML IV SCH ×2 (11:40→23:28)
[2020-09-11] MEDS: IRON SUCROSE 100 MG in SODIUM CHLORIDE 0.9% 100 ML 100 ML IV SCH (16:24)
[2020-09-11] MEDS: ATORVASTATIN 20 MG TAB PO SCH (20:50)
[2020-09-11] MEDS: ACETAMINOPHEN 325 MG TAB PO PRN (20:51)
[2020-09-12] VITALS (8 sets, daily range): BP systolic 101–118; BP diastolic 55–69
[2020-09-12] MEDS: ALBUTEROL/IPRATROPIUM 3 ML NEB NEB SCH ×3 (06:50→19:16)
[2020-09-12] MEDS: BALSAM PERU/CASTOR OIL 60 GM OINT...G. TP SCH (08:53)
[2020-09-12] MEDS: METOPROLOL TARTRATE 25 MG TAB PO SCH (08:53)
[2020-09-12] MEDS: PANTOPRAZOLE SOD 40 MG TABEC PO SCH ×2 (08:53→21:57)
[2020-09-12] MEDS: ASPIRIN 81 MG CHEW TAB PO SCH (08:53)
[2020-09-12] MEDS: THIAMINE HCL 100 MG TAB PO SCH (08:53)
[2020-09-12 09:41] LABS: MAGNESIUM 1.7 MG/DL (1.3-2.1); POTASSIUM 3.6 mmol/L (3.5-5.1)
[2020-09-12] MEDS: DOXYCYCLINE 100MG/NS 100ML 100 ML IV SCH ×2 (12:31→23:35)
[2020-09-12] MEDS: IRON SUCROSE 100 MG in SODIUM CHLORIDE 0.9% 100 ML 100 ML IV SCH (17:12)
[2020-09-12] MEDS: ATORVASTATIN 20 MG TAB PO SCH (21:56)
[2020-09-13] VITALS (7 sets, daily range): BP systolic 112–123; BP diastolic 56–95
[2020-09-13] MEDS: ALBUTEROL/IPRATROPIUM 3 ML NEB NEB SCH ×3 (00:18→19:25)
[2020-09-13 07:49] LABS: BASOPHILS # (AUTO) 0.1 (0.0-0.1); BASOPHILS % 0.8 % (0.0-1.0); EOSINOPHILS # (AUTO) 0.1 (0.0-0.4); EOSINOPHILS % 1.2 % (0.0-6.0); HEMOGLOBIN 10.3 g/dL (12.0-16.0); LYMPHOCYTES # (AUTO) 0.8 (1.0-3.2); LYMPHOCYTES % 12.6 % (18.0-39.1); MEAN CORPUSCULAR HEMOGLOBIN 27.2 pg (28-32); MEAN CORPUSCULAR HGB CONC 30.3 g/dL (31-35); MEAN CORPUSCULAR VOLUME 89.9 fL (81-99); MONOCYTES # (AUTO) 0.8 (0.2-0.8); MONOCYTES % 12.4 % (4.4-11.3); NEUTROPHILS # (AUTO) 4.8 (2.1-6.9); NEUTROPHILS % 72.5 % (38.7-80.0); PLATELET COUNT 228 x10e3/uL (140-360); RED BLOOD COUNT 3.78 x10e6/uL (3.6-5.1); RED CELL DISTRIBUTION WIDTH 16.1 % (11.7-14.4)
[2020-09-13 08:05] LABS: ANION GAP 12.8 mmol/L (8-16); BLOOD UREA NITROGEN 6 mg/dL (7-26); BUN/CREATININE RATIO 11 (6-25); CALCIUM 7.9 mg/dL (8.4-10.2); CARBON DIOXIDE 27 mmol/L (22-29); CHLORIDE 99 mmol/L (98-107); CREATININE, SERUM 0.56 mg/dL (0.57-1.11); EST GLOMERULAR FILTRATION RATE > 60 ML/MIN (60-); GLUCOSE 96 mg/dL (74-118); POTASSIUM 3.8 mmol/L (3.5-5.1); SODIUM 135 mmol/L (136-145)
[2020-09-13] MEDS: ASPIRIN 81 MG CHEW TAB PO SCH (09:00)
[2020-09-13] MEDS: PANTOPRAZOLE SOD 40 MG TABEC PO SCH ×2 (09:00→20:30)
[2020-09-13] MEDS: METOPROLOL TARTRATE 25 MG TAB PO SCH ×2 (09:00→15:00)
[2020-09-13] MEDS: THIAMINE HCL 100 MG TAB PO SCH (09:00)
[2020-09-13] MEDS: BALSAM PERU/CASTOR OIL 60 GM OINT...G. TP SCH (09:00)
[2020-09-13] MEDS ORDERED: MIDAZOLAM HCL 2 MG/2 ML VIAL ONE ×2 (11:56→13:37)
[2020-09-13] MEDS ORDERED: FENTANYL CITRATE/PF 100MCG/2 ML INJ ONE (11:56)
[2020-09-13] MEDS ORDERED: LIDOCAINE HCL 2% LOCAL 20 ML VIAL ONE (11:57)
[2020-09-13] MEDS ORDERED: SODIUM CHLORIDE 0.9% 1000ML 1,000 ML ONE ×2 (11:57→13:23)
[2020-09-13] MEDS ORDERED: SODIUM CHLORIDE 0.9% 500ML 500 ML ONE (11:57)
[2020-09-13] MEDS ORDERED: CEFAZOLIN SOD 2 GM/D5W 50ML 50 ML IV ONE (13:16)
[2020-09-13] MEDS: ENOXAPARIN SOD INJ 40 MG/0.4 ML SYR SC SCH (15:55)
[2020-09-13] MEDS: IRON SUCROSE 100 MG in SODIUM CHLORIDE 0.9% 100 ML 100 ML IV SCH (16:53)
[2020-09-13] MEDS: ACETAMINOPHEN 325 MG TAB PO PRN (20:30)
[2020-09-13] MEDS: MINOCYCLINE HCL 50 MG CAP PO SCH (20:30)
[2020-09-13] MEDS: ATORVASTATIN 20 MG TAB PO SCH (20:30)
[2020-09-14] VITALS (7 sets, daily range): BP systolic 91–137; BP diastolic 47–82
[2020-09-14] MEDS ORDERED: BISACODYL 5 MG TAB EC PO ONE (00:45)
[2020-09-14] MEDS ORDERED: VANCOMYCIN 1GM/NS 250 ML 250 ML IV ONE (01:30)
[2020-09-14] MEDS: ALBUTEROL/IPRATROPIUM 3 ML NEB NEB SCH ×3 (02:48→20:25)
[2020-09-14] MEDS ORDERED: LOPRESSOR25 MG PO (08:14)
[2020-09-14] MEDS ORDERED: NICODERM CQ1 EAC2 TOP (08:14)
[2020-09-14] MEDS ORDERED: B-1100 MG PO (08:14)
[2020-09-14] MEDS ORDERED: PROTONIX20 MG PO (08:14)
[2020-09-14] MEDS: METOPROLOL TARTRATE 25 MG TAB PO SCH (09:00)
[2020-09-14] MEDS: PANTOPRAZOLE SOD 40 MG TABEC PO SCH ×2 (09:24→20:54)
[2020-09-14] MEDS: ASPIRIN 81 MG CHEW TAB PO SCH (09:24)
[2020-09-14] MEDS: THIAMINE HCL 100 MG TAB PO SCH (09:24)
[2020-09-14] MEDS: BALSAM PERU/CASTOR OIL 60 GM OINT...G. TP SCH (09:31)
[2020-09-14] MEDS: ENOXAPARIN SOD INJ 40 MG/0.4 ML SYR SC SCH (12:05)
[2020-09-14] MEDS: APIXABAN 5 MG TABLET PO SCH (16:16)
[2020-09-14] MEDS: IRON SUCROSE 100 MG in SODIUM CHLORIDE 0.9% 100 ML 100 ML IV SCH (16:16)
[2020-09-14] MEDS: ATORVASTATIN 20 MG TAB PO SCH (20:54)
[2020-09-14] MEDS: MINOCYCLINE HCL 50 MG CAP PO SCH (20:54)
[2020-09-15 01:05] VITALS: BP 96/45
[2020-09-15] MEDS: ALBUTEROL/IPRATROPIUM 3 ML NEB NEB SCH ×2 (02:15→08:15)
[2020-09-15 05:50] VITALS: BP 102/58
[2020-09-15] MEDS ORDERED: ELIQUIS5 MG PO (07:11)
[2020-09-15] MEDS ORDERED: MINOCYCLINE HCL50 MG PO (07:11)
[2020-09-15 08:22] VITALS: BP 112/60
[2020-09-15 08:35] VITALS: BP 112/60
[2020-09-15] MEDS: THIAMINE HCL 100 MG TAB PO SCH (09:28)
[2020-09-15] MEDS: ASPIRIN 81 MG CHEW TAB PO SCH (09:28)
[2020-09-15] MEDS: METOPROLOL TARTRATE 25 MG TAB PO SCH (09:28)
[2020-09-15] MEDS: MINOCYCLINE HCL 50 MG CAP PO SCH (09:28)
[2020-09-15] MEDS: APIXABAN 5 MG TABLET PO SCH (09:28)
[2020-09-15] MEDS: PANTOPRAZOLE SOD 40 MG TABEC PO SCH (09:28)
[2020-09-15] MEDS: BALSAM PERU/CASTOR OIL 60 GM OINT...G. TP SCH (09:29)
== END 2020-09-15 11:35 | disposition home or self-care (01) | DRG 981 ==
LOC: FSED 08:41 → ERHOLD 11:41 → MED/SURG 13:24 → ICU 08-30 14:40 → MED/SURG2 09-08 13:49
PROVIDERS: ADMIT Internal Medicine; ATTEND Internal Medicine
PROC: 0BBF3ZX Excision of Right Lower Lung Lobe, Percutaneous Approach, Diagnostic (ICD-10-PCS; principal; 2020-08-29)
PROC: 5A1945Z Respiratory Ventilation, 24-96 Consecutive Hours (ICD-10-PCS; 2020-08-30)
PROC: 0BH18EZ Insertion of Endotracheal Airway into Trachea, Via Natural or Artificial Opening Endoscopic (ICD-10-PCS; 2020-08-30)
PROC: 02HV33Z Insertion of Infusion Device into Superior Vena Cava, Percutaneous Approach (ICD-10-PCS; 2020-08-30)
PROC: B548ZZA Ultrasonography of Superior Vena Cava, Guidance (ICD-10-PCS; 2020-08-30)
PROC: 3E043XZ Introduction of Vasopressor into Central Vein, Percutaneous Approach (ICD-10-PCS; 2020-08-30)
PROC: 30233N1 Transfusion of Nonautologous Red Blood Cells into Peripheral Vein, Percutaneous Approach (ICD-10-PCS; 2020-08-31)
PROC: 4A023N7 Measurement of Cardiac Sampling and Pressure, Left Heart, Percutaneous Approach (ICD-10-PCS; 2020-09-07)
PROC: B2111ZZ Fluoroscopy of Multiple Coronary Arteries using Low Osmolar Contrast (ICD-10-PCS; 2020-09-07)
PROC: B2151ZZ Fluoroscopy of Left Heart using Low Osmolar Contrast (ICD-10-PCS; 2020-09-07)
PROC: 0JH608Z Insertion of Defibrillator Generator into Chest Subcutaneous Tissue and Fascia, Open Approach (ICD-10-PCS; 2020-09-13)
PROC: 02HK3KZ Insertion of Defibrillator Lead into Right Ventricle, Percutaneous Approach (ICD-10-PCS; 2020-09-13)
PROC: 02H63KZ Insertion of Defibrillator Lead into Right Atrium, Percutaneous Approach (ICD-10-PCS; 2020-09-13)
DX: K56.7 Ileus, unspecified (principal); R57.1 Hypovolemic shock; G93.41 Metabolic encephalopathy; I50.23 Acute on chronic systolic (congestive) heart failure; J96.20 Acute and chronic respiratory failure, unspecified whether with hypoxia or hypercapnia; E87.4 Mixed disorder of acid-base balance; R04.2 Hemoptysis; E87.0 Hyperosmolality and hypernatremia; I47.2 Ventricular tachycardia; K92.2 Gastrointestinal hemorrhage, unspecified; I82.612 Acute embolism and thrombosis of superficial veins of left upper extremity; J44.9 Chronic obstructive pulmonary disease, unspecified; R91.8 Other nonspecific abnormal finding of lung field; E78.5 Hyperlipidemia, unspecified; Z95.5 Presence of coronary angioplasty implant and graft; F17.210 Nicotine dependence, cigarettes, uncomplicated; Z72.89 Other problems related to lifestyle; E66.9 Obesity, unspecified; I25.10 Atherosclerotic heart disease of native coronary artery without angina pectoris; Z20.822 Contact with and (suspected) exposure to COVID-19; Z68.31 Body mass index [BMI] 31.0-31.9, adult; Z79.82 Long term (current) use of aspirin; Z79.84 Long term (current) use of oral hypoglycemic drugs; N20.0 Calculus of kidney; E87.6 Hypokalemia; I11.0 Hypertensive heart disease with heart failure; Z82.49 Family history of ischemic heart disease and other diseases of the circulatory system; I48.91 Unspecified atrial fibrillation; R41.0 Disorientation, unspecified; E11.42 Type 2 diabetes mellitus with diabetic polyneuropathy; D50.9 Iron deficiency anemia, unspecified
CPT/HCPCS: 32408; 33249; 36415; 36569; 36600; 51700; 71045; 71046; 71250; 74018; 74176; 74177; 74470; 76937; 77012; 78278; 80048; 80053; 80061; 80076; 81003; 82150; 82550; 82553; 82607; 82728; 82746; 82805; 82948; 83036; 83540; 83690; 83735; 83880; 84132; 84466; 84484; 85025; 85045; 85384; 85610; 85730; 86850; 86900; 86920; 88305; 88312; 93005; 93306; 93458; 93970; 94002; 94003; 94640; 96361; 97139; 99152; 99153; 99251; 99284; A9512; C1722; C1777; C1898; J0330; J0610; J0690; J1630; J1644; J1650; J1756; J1940; J2001; J2060; J2250; J2405; J2543; J2920; J2930; J3010; J3370; J3411; J3430; J3475; J3480; J3486; J7030; J7040; J7050; J7060; J7070; P9016; P9047; Q0162; Q9967; U0002